=== PATIENT | male | born 1950 | race Caucasian/White ===

== ENCOUNTER 2017-12-01 07:45 | Day surgery (SDC) ==
[2017-12-01] MEDS: BETADINE OPTH PREP OP PRN ×2 (07:58→08:22)
[2017-12-01] MEDS: TETRACAINE 0.5% UNIT-DOSE OP PRN ×2 (07:58→08:19)
[2017-12-01] MEDS: CYCLOGYL 2% OPTH OP PRN ×3 (07:59→08:09)
[2017-12-01] MEDS ORDERED: BRIMONIDINE TARTRATE 0.2% OPTH SOL OP PRN (08:25)
[2017-12-01] MEDS ORDERED: BSS WITH EPINEPHRINE OP ONE (08:25)
[2017-12-01] MEDS ORDERED: LIDOCAINE 1%/PHENYLEPHRINE 1.5% BSS (SURGERY) INTRAOCULA ONE (08:25)
[2017-12-01] MEDS ORDERED: ZOFRAN 4 MG/2 ML IVP ONE (08:25)
[2017-12-01] MEDS ORDERED: DEX-MOXI-KETOR OPTH INJ 1/0.5/0.4 MG/ML IO ONE (08:25)
[2017-12-01] MEDS ORDERED: LIDOCAINE 1% 20 ML MDV ID STA (08:25)
[2017-12-01] MEDS ORDERED: SUBLIMAZE ONE (08:30)
[2017-12-01] MEDS ORDERED: VERSED ONE (08:30)
[2017-12-01] MEDS ORDERED: DIPRIVAN 20 ML VIAL IVP ONE (08:30)
[2017-12-03 14:22] VITALS: BP 128/56; TEMP 98.5
== END 2017-12-01 09:30 | disposition home or self-care (01) ==
LOC: SURG 07:45
PROVIDERS: ATTEND Ophthalmology
DX: H25.812 Combined forms of age-related cataract, left eye (principal)

== ENCOUNTER 2017-12-30 09:03 | Day surgery (SDC) | payer OTHER ==
[2017-12-30] MEDS: TETRACAINE 0.5% UNIT-DOSE OP PRN ×2 (10:18→10:36)
[2017-12-30] MEDS: BETADINE OPTH PREP OP PRN ×2 (10:18→10:36)
[2017-12-30] MEDS: CYCLOGYL 2% OPTH OP PRN ×3 (10:19→10:29)
[2017-12-30] MEDS ORDERED: ZOFRAN 4 MG/2 ML IVP ONE (10:27)
[2017-12-30] MEDS ORDERED: BRIMONIDINE TARTRATE 0.2% OPTH SOL OP PRN (10:27)
[2017-12-30] MEDS ORDERED: LIDOCAINE 1%/PHENYLEPHRINE 1.5% BSS (SURGERY) INTRAOCULA ONE (10:27)
[2017-12-30] MEDS ORDERED: DEX-MOXI-KETOR OPTH INJ 1/0.5/0.4 MG/ML IO ONE (10:27)
[2017-12-30] MEDS ORDERED: BSS WITH EPINEPHRINE OP ONE (10:27)
[2017-12-30] MEDS ORDERED: LIDOCAINE 1% 20 ML MDV ID STA (10:27)
[2017-12-30] MEDS ORDERED: VERSED ONE (10:36)
[2017-12-30] MEDS ORDERED: SUBLIMAZE ONE (10:36)
[2017-12-30 16:39] VITALS: BP 135/57
== END 2017-12-30 11:30 | disposition home or self-care (01) ==
LOC: SURG 09:03
PROVIDERS: ATTEND Ophthalmology
DX: H25.811 Combined forms of age-related cataract, right eye (principal)